=== PATIENT | female | born 1965 | race Caucasian/White ===

== ENCOUNTER 2018-09-14 16:20 | Outpatient (REF) | payer BC, SELFPAY ==
--- NOTE | 2018-09-14 15:40 | PAPFT_PTH ---
PATIENT: Cynthia Ayala LOC: [facility] U#:[id number] AGE/SX: 53/F ROOM: RE09/14/[address]: Sherron Stafford : 1965 BED: DIS: 09/14/2018 SPEC #: [id number] RECD: 09/14/18 17:25 STATUS: HEAVENLY REJenifer #: [id number] NADEEM: 09/14/18 15:[address]: Sherron Stafford DEPT: [facility] Cytology RECD BY: Maggie Muñoz ENTERED: 09/14/18 17:25 SP TYPE: PAPFT FOSTER DR: Unknown,Unknown Tissues: 1 - CX/ENDOCX FOR PAP SMEARS Procedures: PAP THIN PREP/[facility] Screening HPV DNA PROBE Comments: [id number]
== END 2018-09-14 16:40 ==
LOC: LBN 16:20
PROVIDERS: Visit Provider Obstetrics & Gynecology Gynecology
DX: Z12.4 Encounter for screening for malignant neoplasm of cervix (principal); Z11.51 Encounter for screening for human papillomavirus (HPV)
CPT/HCPCS: 88142; 87624

== ENCOUNTER 2022-09-16 00:41 | Outpatient (CLI) | payer BC, SELFPAY ==
--- NOTE | 2022-09-16 07:00 | DI.RAD_ITS ---
Exam(s) XR THUMB RT EXAM: XR THUMB RT CLINICAL HISTORY: evaluate joint and bony pathology,bilat thumb pain,m79.645,r52,oa. TECHNIQUE: 2D digital imaging was performed. Three views. COMPARISON: No exams were available for comparison FINDINGS: BONES: No acute fracture is present. No bony destructive lesion is seen. JOINTS: No dislocation present. Mild joint space narrowing at the 1st carpometacarpal joint and mild periarticular spurring. Joint space narrowing spurring also seen at the distal interphalangeal join t of the index finger. Degenerative changes noted to a lesser extent elsewhere. SOFT TISSUE: Normal. IMPRESSION: Mild degenerative changes. DATA REPOSITORY: RADIATION DOSE DELIVERED:
--- NOTE | 2022-09-16 07:00 | DI.RAD_ITS ---
Exam(s) XR THUMB LT EXAM: XR THUMB LT CLINICAL HISTORY: evaluate joint and bony pathology. TECHNIQUE: 2D digital imaging was performed. Three views. COMPARISON: None. FINDINGS: BONES: No acute fracture is present. No bony destructive lesion is seen. JOINTS: No dislocation present. Degenerative changes at 1st carpal metacarpal joint with joint space narrowing and prominent spurring. Mild degenerative changes interphalangeal joints peer. SOFT TISSUE: Normal. IMPRESSION: Moderate to severe degenerative changes at the 1st carpal metacarpal joint. DATA REPOSITORY: RADIATION DOSE DELIVERED:
== END 2022-09-16 01:01 ==
LOC: DI 00:41
PROVIDERS: PCP Student in an Organized Health Care Education/Training Program; Visit Provider Student in an Organized Health Care Education/Training Program
DX: M18.12 Unilateral primary osteoarthritis of first carpometacarpal joint, left hand; M79.645 Pain in left finger(s)
CPT/HCPCS: 73140

== ENCOUNTER 2022-09-16 02:55 | Outpatient (CLI) | payer BC, SELFPAY ==
[2022-09-16 08:28] LABS: Calculated LDL 199 mg/dL (<100); Cholesterol 281 mg/dL (<200); HDL Cholesterol 60 mg/dL (40-60); Triglyceride 111 mg/dL (<150)
== END 2022-09-16 02:56 | disposition home or self-care (01) ==
LOC: LBO 02:55
PROVIDERS: PCP Student in an Organized Health Care Education/Training Program; Visit Provider Student in an Organized Health Care Education/Training Program
DX: E78.00 Pure hypercholesterolemia, unspecified (principal)
CPT/HCPCS: 36415; 80061

== ENCOUNTER 2022-10-21 01:28 | Outpatient (CLI) | payer BC, SELFPAY ==
--- NOTE | 2022-10-21 06:45 | DI.MAMMO_ITS ---
Exam(s) MAMMO SCREENING EXAM: MAMMO SCREENING CLINICAL HISTORY: screening, Z12.39 TECHNIQUE: Mammograms were interpreted according to the usual protocol including computer analysis w [employer] CAD system, tomosynthesis and C-view imaging. COMPARISON: 2020 FINDINGS: The breasts are composed of scattered fibroglandular densities, Breast Density category B. No suspicious masses or suspicious microcalcifications are seen. No skin thickening or abnormal axillary lymph nodes are seen. There has been no significant change from prior exams. IMPRESSION: BI-RADS Category 1, Negative mammogram Yearly screening mammography is recommended. Breast Density - Category B, scattered fibroglandular densities. A negative radiographic report should not delay biopsy if a dominant or clinically suspicious mass is present. Up to ten percent of cancers are not identified on mammography. A negative report may reinforce clinical impression. Adenosis and dense breasts may obscure an underlying neoplasm. False positive reports average 6 to 10%. Patient will receive a letter notifying them of these results.
== END 2022-10-21 01:48 ==
LOC: DI 01:29
PROVIDERS: PCP Student in an Organized Health Care Education/Training Program; Visit Provider Student in an Organized Health Care Education/Training Program
DX: Z12.31 Encounter for screening mammogram for malignant neoplasm of breast (principal)
CPT/HCPCS: 77063; 77067

== ENCOUNTER 2022-11-07 03:04 | Outpatient (CLI) | payer BC, SELFPAY ==
[2022-11-07 10:57] LABS: Vitamin D 25 Total 41.5 ng/mL (30-100)
[2022-11-09 09:41] LABS: Lipoprotein (a) 39 nmol/L (<75)
[2022-11-11 16:09] LABS: Apolipoprotein B, Serum 126 mg/dL (48-124); Beta VLDL Cholesterol Not Detected mg/dL (<15); Beta VLDL Triglycerides Not Detected mg/dL (<15); Cholesterol, Total, CDC 282 mg/dL; Chylomicron Cholesterol Not Detected; Chylomicron Triglycerides Not Detected; HDL Cholesterol, CDC 57 mg/dL (>=50); LDL Cholesterol 207 mg/dL; LDL Triglycerides 37 mg/dL (<=50); Lp(a) Cholesterol <5 mg/dL (<5); LpX Not detected; Triglycerides, CDC 119 mg/dL; VLDL Cholesterol 18 mg/dL (<30); VLDL Triglycerides 61 mg/dL (<120)
== END 2022-11-07 03:05 | disposition home or self-care (01) ==
LOC: LBO 03:04
PROVIDERS: PCP Student in an Organized Health Care Education/Training Program; Visit Provider Student in an Organized Health Care Education/Training Program
DX: R53.83 Other fatigue (principal); E78.5 Hyperlipidemia, unspecified; R89.8 Other abnormal findings in specimens from other organs, systems and tissues; Z79.899 Other long term (current) drug therapy
CPT/HCPCS: 36415; 80061; 82306; 83695; 82172; 82664; 83735

== ENCOUNTER 2023-01-01 09:23 | Outpatient (REF) | payer BC, SELFPAY ==
--- NOTE | 2023-01-01 08:40 | PAPFT_PTH ---
PATIENT: Cynthia Ayala LOC: [facility] U#:[id number] AGE/SX: 57/F ROOM: RE01/01/[address]: Belkis Bailey NP : 1965 BED: DIS: 01/01/2023 SPEC #: [id number] RECD: 01/01/23 12:51 STATUS: HEAVENLY MOORE #: [id number] NADEEM: 01/01/23 08:[address]: Belkis Bailey NP DEPT: [facility] Cytology RECD BY: Maggie Muñoz ENTERED: 01/01/23 12:51 SP TYPE: PAPFT OT DR: Mignon Harvey, DO Tissues: 1 - CX/ENDOCX FOR PAP SMEARS Procedures: PAP THIN PREP/[facility] Screening HPV DNA PROBE Comments: [id number]
== END 2023-01-01 09:24 | disposition home or self-care (01) ==
LOC: LBN 09:23
PROVIDERS: PCP Student in an Organized Health Care Education/Training Program; Visit Provider Nurse Practitioner Women's Health
DX: Z12.4 Encounter for screening for malignant neoplasm of cervix (principal); Z11.51 Encounter for screening for human papillomavirus (HPV)
CPT/HCPCS: 88142; 87624

== ENCOUNTER 2023-04-10 04:31 | Outpatient (CLI) | payer BC, SELFPAY ==
[2023-04-10 07:35] LABS: Abs Immature Grans 0.01 10^3/uL (0.0-0.06); Absolute Basophil Count 0.03 10^3/uL (0.0-0.2); Absolute Eosinophil Count 0.16 10^3/uL (0.0-0.7); Absolute Lymphocyte Count 1.79 10^3/uL (1.2-3.4); Absolute Monocyte Count 0.31 10^3/uL (0.1-0.8); Absolute Neutrophil Count 1.39 10^3/uL (1.2-6.7); Basophils % 0.8; Eosinophils % 4.3; HCT 38.4 % (36.0-46.0); Immature Grans % 0.3; Lymphocytes % 48.5; MCHC 33.9 % (32.0-36.0); MCV 91 fL (80-95); MPV 9.9 fL (8.0-11.0); Monocytes % 8.4; Neutrophils % 37.7; Platelet Count 182 10^3/uL (130-400); RDW 12.3 % (11.7-14.6); RDW-SD 40.7 fL; WBC 3.69 10^3/uL (4.4-10.8)
[2023-04-10 08:06] LABS: Folate > 20.0 ng/mL (8.6-20.0)
[2023-04-10 08:14] LABS: Vitamin D 25 Total 37.5 ng/mL (30-100)
[2023-04-10 08:19] LABS: ALT 37 U/L (14-59); AST 25 U/L (15-37); Albumin 4.1 g/dL (3.4-5.0); Alkaline Phosphatase 76 U/L (46-116); Anion Gap 7.5 mmol/L (3-11); BUN 13 mg/dL (7-18); Bilirubin, Total 0.6 mg/dL (0.2-1.0); CO2 30.5 mmol/L (21.0-32.0); CREATININE 0.8 mg/dL (0.55-1.02); Calcium 9.1 mg/dL (8.5-10.1); Chloride 106 mmol/L (98-107); Estimated GFR 86.42 (mL/min/1.73m2); Glucose 96 mg/dL (74-106); Potassium 4.3 mmol/L (3.5-5.1); Sodium 144 mmol/L (136-145); TSH (W/Ref FT4) 3.06 uIU/mL (0.36-3.74); Total Protein 7.1 g/dL (6.4-8.2); Vitamin B12 463 pg/mL (193-986)
[2023-04-10 08:28] LABS: Bilirubin, Direct 0.2 mg/dL (0.0-0.2)
[2023-04-10 20:54] LABS: Hepatitis C Ab w Rflx HCV PCR Negative (Negative)
[2023-04-10 20:55] LABS: HIV-1/2 Ag & Ab Screen Negative (Negative)
[2023-04-14 17:47] LABS: Apolipoprotein B, Serum 83 mg/dL (48-124); Beta VLDL Cholesterol Not Detected mg/dL (<15); Beta VLDL Triglycerides Not Detected mg/dL (<15); Cholesterol, Total, CDC 184 mg/dL; Chylomicron Cholesterol Not Detected; Chylomicron Triglycerides Not Detected; HDL Cholesterol, CDC 57 mg/dL (>=50); Interpretation Normal; LDL Cholesterol 109 mg/dL; LDL Triglycerides 27 mg/dL (<=50); Lp(a) Cholesterol <5 mg/dL (<5); LpX Not detected; Triglycerides, CDC 92 mg/dL; VLDL Cholesterol 18 mg/dL (<30); VLDL Triglycerides 51 mg/dL (<120)
== END 2023-04-10 04:32 | disposition home or self-care (01) ==
LOC: LBO 04:31
PROVIDERS: PCP Student in an Organized Health Care Education/Training Program; Visit Provider Student in an Organized Health Care Education/Training Program
DX: R53.83 Other fatigue; Z91.89 Other specified personal risk factors, not elsewhere classified; A09 Infectious gastroenteritis and colitis, unspecified; K90.9 Intestinal malabsorption, unspecified; Z13.1 Encounter for screening for diabetes mellitus; Z13.220 Encounter for screening for lipoid disorders; T39.1X1A Poisoning by 4-Aminophenol derivatives, accidental (unintentional), initial encounter; Z11.3 Encounter for screening for infections with a predominantly sexual mode of transmission; Z13.0 Encounter for screening for diseases of the blood and blood-forming organs and certain disorders involving the immune mechanism; E78.00 Pure hypercholesterolemia, unspecified
CPT/HCPCS: 36415; 80048; 80061; 80076; 82306; 86803; 87389; 82172; 82607; 82664; 82746; 84443; 85025